=== PATIENT | male | born 1970 | race African-American/Black ===

== ENCOUNTER 2016-08-14 21:07 | Emergency (ER) | payer BC ==
[2016-08-14] MEDS ORDERED: Ketorolac Tromethamine 60 MG/2 ML VIAL ONE (21:31)
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
== END 2016-08-14 22:01 | disposition home or self-care (01) ==
LOC: BURERS 21:07
DX: G89.4 Chronic pain syndrome (principal); M79.604 Pain in right leg; I10 Essential (primary) hypertension
CPT/HCPCS: 96372; J1885

== ENCOUNTER 2016-12-15 20:57 | Emergency (ER) | payer BC ==
[2016-12-15] MEDS ORDERED: Dexamethasone 4 mg/ml Vial ONE ×3 (21:17→21:21)
[2016-12-15] MEDS ORDERED: Sulfameth/Trimethoprim DS 800-160mg TAB ONE (21:17)
== END 2016-12-15 21:40 | disposition home or self-care (01) ==
LOC: BURERS 20:57
DX: R07.89 Other chest pain (principal); J01.90 Acute sinusitis, unspecified
CPT/HCPCS: 93005; J1100

== ENCOUNTER 2017-06-20 23:31 | Emergency (ER) | payer BC ==
[2017-06-20] MEDS ORDERED: Ketorolac Tromethamine 30 MG/ML VIAL ONE (23:56)
[2017-06-21 00:03] LABS: #Basophils 0.1 thou/uL (0.0-0.2); #Eosinphils 0.1 thou/uL (0.0-0.7); #Lymphocytes 2.1 thou/uL (1.20-3.40); #Monocytes 0.6 thou/uL (0.11-0.59); #Neutrophils 5.4 thou/uL (1.40-6.50); %Basophils 1.6 % (0.0-1.0); %Eosinophils 1.5 % (0.0-10.0); %Lymphocytes 25.1 % (21.0-51.0); %Monocytes 7.3 % (0.0-10.0); %Neutrophils 64.5 % (42.0-75.0); Hemoglobin 13.1 g/dL (14.0-18.0); Mean Corpuscular HGB CONC 31.6 g/dL (32.0-36.0); Mean Corpuscular Hemoglobin 27.5 pg (27.0-31.0); Mean Platelet Volume 9.2 fL (7.4-10.4); Platelet Count 127 thou/uL (130-400); RBC Distribution Width 13.2 % (11.5-14.5); Red Blood Cell (RBC) Count 4.76 mill/uL (4.70-6.10); White Blood Cell (WBC) Count 8.4 thou/uL (4.8-10.8)
[2017-06-21 00:15] LABS: ALT (SGPT) 41 U/L (8-55); AST (SGOT) 34 U/L (5-34); Alkaline Phosphatase 53 U/L (40-150); Anion Gap 16 mmol/L (10-20); BUN (Urea Nitrogen) 20 mg/dL (8.9-20.6); Bilirubin Negative (Negative); Bilirubin, Total 0.4 mg/dL (0.2-1.2); Blood, Urine Trace (Negative); Calc. Creatinine Clearance 0 mL/min (70-130); Calcium 9.2 mg/dL (7.8-10.44); Carbon Dioxide 24 mmol/L (22-29); Chloride 105 mmol/L (98-107); Clarity Clear (Clear); Estimated GFR-MDRD 54; Globulin 3.3 g/dL (2.4-3.5); Glucose 102 mg/dL (70-105); Glucose, Urine (Dipstick) Negative (Negative); Leukocyte Negative (Negative); Nitrite Negative (Negative); Potassium 3.7 mmol/L (3.5-5.1); Protein, Total 7.3 g/dL (6.0-8.3); Protein, Urine (Dipstick) Negative (Neg-Trace); Sodium 141 mmol/L (136-145); Urobilinogen 0.2 mg/dL (0.2-1.0)
[2017-06-21 00:22] LABS: RBC/HPF 0-3 HPF (0-3); Squamous Epithelial 0-3 HPF (0-3); WBC/HPF None Seen HPF (0-3)
[2017-06-21] MEDS ORDERED: methylPREDNISolone Sod Succ/PF 125 MG/2 ML VIAL ONE (01:10)
[2017-06-21] MEDS ORDERED: Tamsulosin HCl 0.4 MG CAP PO SCH (01:30)
--- NOTE | 2017-06-21 07:55 | CT ---
PRELIMINARY REPORT/[facility]/EMERGENCY AFTER HOURS PROCEDURE: EXAM: CT Abdomen and Pelvis Without Intravenous Contrast EXAM DATE/TIME: Exam ordered 06/21/2017 12:32 AM CLINICAL HISTORY: 46 years old, male; Pain; Abdominal pain; Flank; Right; Patient HX: Ulises presents to the er for ri ght flank pain TECHNIQUE: Axial computed tomography images of the abdomen and pelvis without intravenous contrast. Coronal reformatted images were created and reviewed. COMPARISON: No relevant prior studies available. FINDINGS: Lower thorax: No acute findings. ABDOMEN: Liver: Unremarkable. Gallbladder and bile ducts: Unremarkable. No calcified stones. No ductal dilation. Pancreas: Unremarkable. No ductal dilation. Spleen: Unremarkable. No splenomegaly. Adrenals: Unremarkable. No mass. Kidneys and ureters: 3-4 mm obstructing stone in the proximal right ureter causing mild-moderate obst ructive uropathy. Stomach and bowel: Unremarkable. No obstruction. No mucosal thickening. Appendix: Normal appendix. PELVIS: Bladder: Unremarkable. No stones. Reproductive: Prostatomegaly. ABDOMEN and PELVIS: Intraperitoneal space: Unremarkable. No free air. No significant fluid collection. Bones/joints: No acute fracture. No dislocation. Soft tissues: Unremarkable. Vasculature: Unremarkable. No abdominal aortic aneurysm. Lymph nodes: Unremarkable. No enlarged lymph nodes. IMPRESSION: 3-4 mm obstructing stone in the proximal right ureter causing mild-moderate obstructive uropathy. Thank you for allowing us to participate in the care of your patient. Dictated and Authenticated by: Cristino Jack MD 06/21/2017 12:58 AM Central Time ([place] & [place]) FINAL REPORT CT ABDOMEN AND PELVIS WITHOUT CONTRAST: Date: 06/21/[address] of the abdomen and pelvis was done without oral or IV contrast for evaluation of right flan k pain. Axial slices were acquired, then coronal reconstructions were done. There is a calculus in the proximal right ureter measuring about 8.0 x 5.0 mm that is causing moderat e right hydronephrosis. It is located at the level of the L4-L5 disc space. No other renal calculi we re seen. There are numerous calcifications in the pelvis, but all appear to be phleboliths. The remainder of the CT exam is unremarkable. The lung bases are clear. The liver, spleen, pancreas, gallbladder, adrenal glands, and abdominal aorta are all unremarkable in appearance. The bowel is non distended and shows no inflammatory change. The appendix appears normal. There is no free air or free fluid. CT of the pelvis shows no masses, inflammatory changes, or free fluid. IMPRESSION: 8.0 x 5.0 mm calculus in the mid right ureter causing moderate right hydronephrosis. Report in agreement with preliminary reading by Ruma. POS: HOME
== END 2017-06-21 01:28 | disposition home or self-care (01) ==
LOC: BURERS 23:31
DX: N13.2 Hydronephrosis with renal and ureteral calculous obstruction (principal); I10 Essential (primary) hypertension; Z79.899 Other long term (current) drug therapy
CPT/HCPCS: 74176; 80053; 81003; 81015; 85025; 96374; 96375; J1885; J2930

== ENCOUNTER 2018-07-26 20:36 | Emergency (ER) | payer BC, SELFPAY ==
[2018-07-26] MEDS ORDERED: Ibuprofen 800 MG TAB ONE (20:50)
== END 2018-07-26 20:52 | disposition home or self-care (01) ==
LOC: BURERS 20:36
DX: M10.9 Gout, unspecified (principal); Z79.899 Other long term (current) drug therapy
CPT/HCPCS: 99283

== ENCOUNTER 2019-05-04 20:54 | Emergency (ER) | payer OTHER ==
[2019-05-04] MEDS ORDERED: Ibuprofen 200 MG TAB ONE (21:40)
[2019-05-04 21:49] LABS: #Basophils 0.1 thou/uL (0.0-0.2); #Eosinphils 0.2 thou/uL (0.0-0.7); #Lymphocytes 2.4 thou/uL (1.20-3.40); #Monocytes 0.6 thou/uL (0.11-0.59); #Neutrophils 3.8 thou/uL (1.40-6.50); %Basophils 1.8 % (0.0-1.0); %Eosinophils 2.9 % (0.0-10.0); %Lymphocytes 33.3 % (21.0-51.0); %Monocytes 7.9 % (0.0-10.0); %Neutrophils 54.1 % (42.0-75.0); Hemoglobin 11.9 g/dL (14.0-18.0); Mean Corpuscular HGB CONC 31.4 g/dL (32.0-36.0); Mean Corpuscular Hemoglobin 26.5 pg (27.0-31.0); Mean Corpuscular Volume 84.2 fL (78.0-98.0); Mean Platelet Volume 10.1 fL (7.4-10.4); Platelet Count 130 thou/uL (130-400); RBC Distribution Width 13.9 % (11.5-14.5); Red Blood Cell (RBC) Count 4.49 mill/uL (4.70-6.10); White Blood Cell (WBC) Count 7.1 thou/uL (4.8-10.8)
[2019-05-04 22:01] LABS: ALT (SGPT) 46 U/L (8-55); AST (SGOT) 45 U/L (5-34); Albumin 3.9 g/dL (3.5-5.0); Alkaline Phosphatase 59 U/L (40-110); Anion Gap 14 mmol/L (10-20); BUN (Urea Nitrogen) 16 mg/dL (8.9-20.6); Bilirubin, Total 0.2 mg/dL (0.2-1.2); CRP (Inflammatory) 4.77 mg/dL (= or < 0.5); Calc. Creatinine Clearance 0 mL/min (70-130); Calcium 9.1 mg/dL (7.8-10.44); Carbon Dioxide 24 mmol/L (22-29); Chloride 110 mmol/L (98-107); Estimated GFR-MDRD 63; Globulin 3.1 g/dL (2.4-3.5); Glucose 100 mg/dL (70-105); Potassium 3.4 mmol/L (3.5-5.1); Sodium 145 mmol/L (136-145)
--- NOTE | 2019-05-04 22:53 | RAD ---
RIGHT KNEE FOUR VIEWS: 05/04/19 No fracture or joint space narrowing was seen. No periarticular calcifications were seen. There may b e a joint effusion, however. IMPRESSION: No acute bony findings. Possible joint effusion. POS: HOME
[2019-05-05] MEDS ORDERED: Ibuprofen 200 MG TAB ONE (03:01)
[2019-05-05 05:20] LABS: BF Color Yellow; Body Fluid Source Synovial Fluid; Clarity Cloudy/Turbid (Clear); Tube # EDTA
[2019-05-05 05:21] LABS: BF RBC Count - Manual 0 /cumm; BF WBC/Nonhematics Ct. - Manua 47750 /cumm
[2019-05-05 05:22] LABS: BF Segmented Neutrophils 94 %; Cell Count Non Hematic 6 %
== END 2019-05-05 06:19 | disposition home or self-care (01) ==
LOC: BURERS 20:54
DX: M10.9 Gout, unspecified (principal); I10 Essential (primary) hypertension; Z79.899 Other long term (current) drug therapy
CPT/HCPCS: 20610; 36415; 80053; 82945; 84157; 84550; 85025; 85060; 86140; 87070; 87077; 87186; 87205; 89051; 89060

== ENCOUNTER 2021-02-23 05:36 | Emergency (ER) | payer OTHER ==
[2021-02-23] MEDS ORDERED: Cyclobenzaprine 10 MG TAB ONE (05:59)
[2021-02-23] MEDS ORDERED: Ketorolac Tromethamine 60 MG/2 ML VIAL ONE (05:59)
[2021-02-23] MEDS ORDERED: traMADol HCl 50 MG TAB ONE (05:59)
== END 2021-02-23 06:07 | disposition home or self-care (01) ==
LOC: BURERS 05:36
DX: S16.1XXA Strain of muscle, fascia and tendon at neck level, initial encounter (principal); I10 Essential (primary) hypertension
CPT/HCPCS: 96372; 99283; J1885

== ENCOUNTER 2022-07-02 01:51 | Emergency (ER) | payer OTHER | END 2022-07-02 02:15 | disposition home or self-care (01) | LOC: BURERS 01:51 | DX: J18.9 Pneumonia, unspecified organism (principal); I10 Essential (primary) hypertension; E78.00 Pure hypercholesterolemia, unspecified; Z79.899 Other long term (current) drug therapy | CPT/HCPCS: 99283 ==

== ENCOUNTER 2023-01-30 06:30 | Emergency (ER) | payer OTHER ==
[2023-01-30] MEDS ORDERED: Ibuprofen 800 MG TAB ONE (06:55)
== END 2023-01-30 07:00 | disposition home or self-care (01) ==
LOC: BURERS 06:30
DX: M10.9 Gout, unspecified (principal); I10 Essential (primary) hypertension; E78.00 Pure hypercholesterolemia, unspecified; Z79.899 Other long term (current) drug therapy
CPT/HCPCS: 99283

== ENCOUNTER 2023-05-18 10:37 | Emergency (ER) | payer OTHER ==
[2023-05-18 11:17] LABS: #Basophils 0.1 thou/uL (0.0-0.2); #Eosinphils 0.3 thou/uL (0.0-0.7); #Lymphocytes 2.6 thou/uL (1.20-3.40); #Monocytes 0.5 thou/uL (0.11-0.59); #Neutrophils 3.1 thou/uL (1.40-6.50); %Basophils 1.1 % (0.0-1.0); %Eosinophils 5.1 % (0.0-10.0); %Lymphocytes 39.7 % (21.0-51.0); %Monocytes 6.9 % (0.0-10.0); %Neutrophils 47.3 % (42.0-75.0); Hematocrit 40.2 % (42.0-52.0); Hemoglobin 12.8 g/dL (14.0-18.0); Mean Corpuscular HGB CONC 31.9 g/dL (32.0-36.0); Mean Corpuscular Hemoglobin 27.2 pg (27.0-31.0); Mean Corpuscular Volume 85.3 fl (78.0-98.0); Mean Platelet Volume 9.3 fL (7.4-10.4); Platelet Count 153 10x3/uL (130-400); Red Blood Cell (RBC) Count 4.71 mill/uL (4.70-6.10); White Blood Cell (WBC) Count 6.6 10x3/uL (4.8-10.8)
[2023-05-18 11:35] LABS: ALT (SGPT) 51 U/L (8-55); AST (SGOT) 39 U/L (5-34); Albumin 4.1 g/dL (3.5-5.0); Alkaline Phosphatase 75 U/L (40-110); Anion Gap 15 mmol/L (10-20); BUN (Urea Nitrogen) 13 mg/dL (8.9-20.6); Bilirubin, Total 0.3 mg/dL (0.2-1.2); Calc. Creatinine Clearance 0 mL/min (70-130); Calcium 9.1 mg/dL (7.8-10.44); Carbon Dioxide 22 mmol/L (22-29); Chloride 107 mmol/L (98-107); Estimated GFR 91; Globulin 3.2 g/dL (2.4-3.5); Glucose 120 mg/dL (70-105); Potassium 3.7 mmol/L (3.5-5.1); Protein, Total 7.3 g/dL (6.0-8.3); Sodium 140 mmol/L (136-145)
== END 2023-05-18 12:32 | disposition home or self-care (01) ==
LOC: BURERS 10:37
DX: I10 Essential (primary) hypertension (principal); E78.00 Pure hypercholesterolemia, unspecified; Z79.899 Other long term (current) drug therapy; Z79.82 Long term (current) use of aspirin
CPT/HCPCS: 36415; 80053; 85025; 99284

== ENCOUNTER 2023-07-06 17:39 | Emergency (ER) | payer OTHER ==
[2023-07-06] MEDS ORDERED: Ketorolac Tromethamine 60 MG/2 ML VIAL ONE (18:01)
[2023-07-06] MEDS ORDERED: Cyclobenzaprine 10 MG TAB ONE (18:01)
== END 2023-07-06 18:25 | disposition home or self-care (01) ==
LOC: BURERS 17:39
DX: M43.6 Torticollis (principal); I10 Essential (primary) hypertension
CPT/HCPCS: 96372; 99283; J1885

== ENCOUNTER 2024-08-13 06:27 | Emergency (ER) | payer OTHER ==
[2024-08-13] MEDS ORDERED: Colchicine 0.6 MG TAB ONE ×2 (07:34)
== END 2024-08-13 07:51 | disposition home or self-care (01) ==
LOC: BURERS 06:27
DX: M10.9 Gout, unspecified (principal); I10 Essential (primary) hypertension
CPT/HCPCS: 99283

== ENCOUNTER 2025-05-11 09:49 | Emergency (ER) | payer OTHER | END 2025-05-11 10:48 | disposition home or self-care (01) | LOC: BURERS 09:49 | DX: S39.012A Strain of muscle, fascia and tendon of lower back, initial encounter (principal); G89.29 Other chronic pain; I10 Essential (primary) hypertension; E11.9 Type 2 diabetes mellitus without complications; Z79.82 Long term (current) use of aspirin; Z79.899 Other long term (current) drug therapy | CPT/HCPCS: 96372; 99283; J1885 ==